=== PATIENT | female | born 1975 | race Caucasian/White ===

== ENCOUNTER 2018-10-24 15:44 | Outpatient (REF) | payer OTHER, MEDICAID, SELFPAY ==
--- NOTE | 2018-10-24 14:20 | PAPFT_PTH ---
PATIENT: Leola Ruano LOC: [facility] U#:[id number] AGE/SX: 43/F ROOM: RE10/24/[address]: Adam Hyman MD : 1975 BED: DIS: 10/24/2018 SPEC #: [id number] RECD: 10/24/18 17:57 STATUS: ROYER REQ #: [id number] CAMRON: 10/24/18 14:[address]: Adam Hyman DEPT: [facility] Cytology RECD BY: Nelida Aragon ENTERED: 10/24/18 17:57 SP TYPE: PAPFT OTHR DR: [place] May Tissues: 1 - CX/ENDOCX FOR PAP SMEARS Procedures: PAP THIN PREP/UVM Screening Comments: [id number]
== END 2018-10-24 16:04 ==
LOC: LBN 15:44
PROVIDERS: PCP Internal Medicine; Visit Provider Obstetrics & Gynecology
DX: Z12.4 Encounter for screening for malignant neoplasm of cervix (principal)
CPT/HCPCS: 88142

== ENCOUNTER 2018-10-30 01:42 | Outpatient (CLI) | payer OTHER, MEDICAID, SELFPAY ==
--- NOTE | 2018-10-30 09:51 | DI.US_ITS ---
SYMPTOMS/DIAGNOSIS: PELVIC PAIN, R10.2 PELVIC ULTRASOUND: The patient had a CT of the abdomen and pelvis at [facility] which is not available for comparison. Transabdominal and transvaginal exams were performed. The uterus measures 8.9 x 5.3 x 5.7 cm. The myometrium appears somewhat heterogeneous. No discrete fibroids are identified. The endometrial stripe measures 3 mm in thickness. There is a complex multi-cystic area in the right adnexal region measuring 6.8 x 3.3 x 6.5 cm. The findings could represent a complex hemorrhagic cyst or clot adjacent to the right ovary. Tubo-ovarian abscess or hydrosalpinx are also a possibilities. There is no evidence of torsion. The left ovary appears normal. The kidneys are unremarkable. IMPRESSION: 6.8 cm complex cystic lesion of the right ovary could represent a hemorrhagic cyst vs tubo-ovarian abscess. Clinical correlation is recommended. Follow up exam is recommended.
== END 2018-10-30 02:02 ==
PROVIDERS: PCP Family Medicine; Visit Provider Obstetrics & Gynecology
DX: R10.2 Pelvic and perineal pain (principal); N83.01 Follicular cyst of right ovary
CPT/HCPCS: 76830; 76856

== ENCOUNTER 2022-01-18 12:16 | Outpatient (REF) | payer OTHER, MEDICAID, SELFPAY ==
--- NOTE | 2022-01-18 08:30 | PAPFT_PTH ---
PATIENT: Leola Ruano LOC: [facility] U#:[id number] AGE/SX: 46/F ROOM: RE01/18/[address]: DEMETRA Hand : 1975 BED: DIS: 01/18/2022 SPEC #: [id number] RECD: 01/18/22 13:09 STATUS: ROYER REQ #: [id number] CAMRON: 01/18/22 08:[address]: Jinny Bee DEPT: [facility] Cytology RECD BY: Nelida Aragon ENTERED: 01/18/22 13:10 SP TYPE: PAPFT OTHR DR: Jabari Zamorano Tissues: 1 - CX/ENDOCX FOR PAP SMEARS Procedures: PAP THIN PREP/UVM Screening HPV DNA PROBE Comments: [id number]
== END 2022-01-18 12:17 | disposition home or self-care (01) ==
LOC: LBN 12:16
PROVIDERS: PCP Family Medicine; Visit Provider Nurse Practitioner Family
DX: Z12.4 Encounter for screening for malignant neoplasm of cervix (principal); Z11.51 Encounter for screening for human papillomavirus (HPV)
CPT/HCPCS: 88142; 87624

== ENCOUNTER 2024-09-20 09:51 | Emergency (ER) | payer OTHER, MEDICAID, SELFPAY ==
--- NOTE | 2024-09-20 09:45 | RT.EKG_ITS ---
APPROVED REPORT Exam: Resting ECG Reason for Exam: Hit to the Chest Patient Location: E HR:93 bpm ECG Measurements Heart Rate 93 AXIS AZ 107 P 65 QRSd 64 QRS 64 QT 333 T 50 QTc 415 Conclusion Sinus rhythm, rate 93 No interval abnormalities No STEMI
[2024-09-20 09:57] VITALS: BP 153/95; PULSE 109; RESP 15; TEMP 36.5; O2SAT 99
--- NOTE | 2024-09-20 10:30 | DI.RAD_ITS ---
Exam(s) XR RIBS RT W PA LAT CHEST CLINICAL HISTORY: trauma to chest wall, right, anterior 3-5. COMPARISON: No exams were available for comparison TECHNIQUE:: PA and lateral views of the chest and four views of the right ribs were performed. FINDINGS: LUNGS:Clear. No pleural abnormality seen. HEART: Normal. MEDIASTINUM: Normal. BONES: No displaced rib fracture is seen. No bony destructive lesion is seen. OTHER FINDINGS: None. IMPRESSION: 1. Unremarkable radiographic appearance of the right ribs. 2. No acute pulmonary findings.
[2024-09-20] MEDS: Ibuprofen 600 MG TAB PO (11:50)
[2024-09-20 11:55] VITALS: PULSE 84; RESP 16; TEMP 36.6; O2SAT 99
--- NOTE | 2024-09-22 18:35 | W.ED.GENAD ---
Discharge Plan Disposition Patient Disposition: Home Condition: Stable Discharge Details Clinical Impression: Chest wall contusion Primary Care Provider: Jabari Zamorano ED Provider: Nelida Devries Home Meds and New Rx's Prescriptions: Continued methylphenidate HCl 10 mg tablet 50 mg PO DIRECTED Patient Comments: Take 3 in a.m. and two in afternoon albuterol sulfate [ProAir HFA] 90 mcg/actuation HFA aerosol inhaler 2 puff inhalation Q6H PRN fluticasone propionate [Flonase Allergy Relief] 50 mcg/actuation spray,suspension 1 spray intranasal DAILY PRN Rx Instructions: administer into each nostril loratadine 10 mg capsule 10 mg PO DAILY PRN cholecalciferol (vitamin D3) 5,000 unit capsule 5,000 unit PO DAILY ibuprofen 600 MG tablet 600 mg PO Q6H PRN Qty: 60 vitamin B complex 1 EACH capsule 1 ea PO DAILY calcium carb-D3-mag ox-zinc ox [Jules Mag Zinc Plus D3] 1 EACH tablet 1 ea PO DAILY Discharge Instructions Instructions: Rib Fracture or Bruised Rib ED Additional Instructions: Take ibuprofen 600 mg every 8 hours with food as needed for pain, make sure you are taking at least 12 full inhalations exhalations daily to prevent pneumonia Should you have persistent pain longer than 2 weeks I do recommend being reassessed Should you have should any new concerns arise including shortness of breath or fever please be reevaluated immediately Referrals: Jabari Zamorano [Primary Care Provider] - 1 day Discharge Data Discharge Date/Time-TO BE ENTERED AT DEPARTURE: 09/20/24 11:57 HPI General Date/Time Provider Initiated Documentation: 09/20/24 10:15. HPI Narrative: This 49-year-old female presents with injury to right side of chest on Tuesday. She was unloading the chicken coop when the wheel barrel fell back and hit her chest. She denies any additional injuries but she has had pain to this area predominantly with sneezing coughing and movement since that time. She denies any shortness of breath. Denies history of coagulopathy. Related Data Home Medications ?Medication ?Instructions ?Recorded ?Confirmed ibuprofen 600 mg tablet 600 mg PO Q6H PRN #60 tab-caps 05/05/15 09/20/24 calcium 333 mg-vit D3 133 1 ea PO DAILY 05/04/17 09/20/24 unit-magnesium 133 mg-zinc 5 mg tablet (Jules Mag Zinc Plus D3) vitamin B complex 1 ea PO DAILY 05/04/17 09/20/24 cholecalciferol (vitamin D3) 125 5,000 unit PO DAILY 10/24/18 09/20/24 mcg (5,000 unit) capsule albuterol sulfate 90 mcg/actuation 2 puff inhalation Q6H PRN 01/12/22 09/20/24 aerosol inhaler (ProAir HFA) fluticasone propionate 50 1 spray intranasal DAILY PRN 01/12/22 09/20/24 mcg/actuation nasal spray,suspension (Flonase Allergy Relief) loratadine 10 mg capsule 10 mg PO DAILY PRN 01/12/22 09/20/24 methylphenidate HCl 10 mg tablet 50 mg PO DIRECTED 01/12/22 09/20/24 Allergies Allergy/AdvReac Type Severity Reaction Status Date / Time sulfamethoxazole (From Allergy Intermediate Hives Unverified 09/20/24 10:02 Bactrim) trimethoprim (From Bactrim) Allergy Intermediate Hives Unverified 09/20/24 10:02 Sulfa (Sulfonamide Allergy Unknown Verified 09/20/24 10:02 Antibiotics) General Stated Complaint: Trauma ERYN: 3 Exam Narrative Exam Narrative: Well-appearing 49-year-old female in no acute distress, reproducible tenderness to ribs 3 through 5 on assessment anteriorly over the nipple line. No crepitus appreciated, lungs clear to auscultation, distal pulses intact, no tenderness to thoracic spine appreciated Course Vital Signs Vital signs: Vital Signs Temperature 36.5 C 09/20/24 09:57 Pulse 109 H 09/20/24 09:57 Respiratory Rate 15 09/20/24 09:57 Blood Pressure 153/95 H 09/20/24 09:57 Pulse Oximetry 99 09/20/24 09:57 Temperature 36.6 C 09/20/24 11:55 Temperature Source Oral 09/20/24 09:57 Pulse 84 09/20/24 11:55 Respiratory Rate 16 09/20/24 11:55 Respiratory Effort Normal, Non-Labored 09/20/24 10:20 Respiratory Depth Normal 09/20/24 10:20 Respiratory Pattern Normal 09/20/24 10:20 Blood Pressure 153/95 H 09/20/24 09:57 Blood Pressure Position Sitting 09/20/24 09:57 Pulse Oximetry 99 09/20/24 11:55 Oxygen Delivery Method Room Air 09/20/24 09:57 Oxygen Flow Rate 0 09/20/24 09:57 Pain Level 3 09/20/24 11:55 Comment 10 when sneezing, 7 with regular movement 09/20/24 09:57 Medical Decision Making 49-year-old female presenting in no acute distress without hypoxia. Given her exquisite tenderness anteriorly on the chest wall, I did order rib series with PA and lateral to evaluate for obvious fracture, pneumothorax, or hemothorax. There was no evidence of this findings on the patient's x-ray per radiology interpretation my review. We discussed ordering a CT scan for further evaluation, however patient feels comfortable with continuing with at least 12 full inhalations and exhalations daily and supportive care with ibuprofen and Tylenol. Return precautions were discussed and patient expressed understanding. Repeat evaluation in 1 week with persistent pain recommended Quality:SDOH Health Related Social Needs: No Data to Display PFSH All Active Problems (Updated 09/20/24 @ 11:39 by JESUS Bey) Chest wall contusion (Acute) Discomfort of right ear (Acute) Sensorineural hearing loss, bilateral (Acute) Medical History Acne rosacea, erythematous telangiectatic type 05/[address] Jaffe. No further Rx required. Attention deficit Endometriosis dx by laparoscopy in 1999. treated dysmenorrhea with Ibuprofen Hearing loss, right History of depression episode 8yrs ago. Interstitial cystitis 09/2017 Eval by [facility] urology. Vulvovaginitis 2013 Rx for BV and vaginal candidiasis 2014. Rx for vaginal candidiasis. Surgical History section x3 Diagnostic Laproscopy 1999 - laparoscopic fulgaration of endometriosis implants H/O tooth extraction Ligation of fallopian tube 2011 Family History Mother COPD (chronic obstructive pulmonary disease) Social History Smoking/Tobacco Use Status: Never Smoking risk assessment performed?: Yes Alcohol Intake: never Drug use: Never Substance use type: does not use Seatbelt use: always Helmet use: Yes
== END 2024-09-20 11:57 | disposition home or self-care (01) ==
PROVIDERS: Emergency Provider Physician Assistant; PCP Family Medicine
DX: S20.211A Contusion of right front wall of thorax, initial encounter (principal); W22.8XXA Striking against or struck by other objects, initial encounter
CPT/HCPCS: 93005; 99284; 71046; 71100; 93010; 99283